=== PATIENT | female | born 1955 | race Caucasian/White ===

== ENCOUNTER → 2017-05-13 | Outpatient (CLI) | payer OTHER ==
[~2017-05-13] MED LIST: ASPI81TA28 PO; BIOT1POW3; BUPRTAB51 PO; CALC600T9; FERR18TA2; IRON; LEVO112T2 PO; MULTIVITAMIN; OMEG10007 PO; PRAM0.129 PO; ULT/50 PO; ZOLP5TAB PO
== END | disposition home or self-care (01) ==
LOC: C.CPL 10:40
DX: M25.562 Pain in left knee (principal)